=== PATIENT | female | born 2000 | race African-American/Black ===

== ENCOUNTER 2019-08-07 10:44 | Emergency (ER) | payer OTHER ==
[~2019-08-07] VITALS: Ht 167.6 cm; Wt 46.5 kg
[2019-08-07 10:48] VITALS: BP 117/84; TEMP 97.9
[2019-08-07] MEDS ORDERED: EXCEDRIN1 TAB PO (10:57)
[2019-08-07 12:01] LABS: COLLECTION METHOD CLEAN CATCH
[2019-08-07 12:08] LABS: MUCOUS Present /lpf; PH 6 (5-8); SQUAMOUS EPITHELIAL 0-2 /hpf; URINE APPEARANCE Clear; URINE BACTERIA Rare /hpf; URINE BILIRUBIN Negative (NEGATIVE); URINE BLOOD Negative (NEGATIVE); URINE COLOR Straw; URINE GLUCOSE Negative (NEGATIVE); URINE KETONE Negative (NEGATIVE); URINE LEUKOCYTE ESTERASE Negative (NEGATIVE); URINE NITRATE Negative (NEGATIVE); URINE PROTEIN(semi-quant) Negative (NEGATIVE); URINE RBC 0-2 /hpf; URINE UROBILINOGEN Negative (NEGATIVE)
[2019-08-07 12:45] VITALS: PULSE 98
== END 2019-08-07 12:50 | disposition home or self-care (01) ==
LOC: COL.ER 10:44
PROVIDERS: Physician Assistant
DX: G43.909 Migraine, unspecified, not intractable, without status migrainosus (principal); R42 Dizziness and giddiness
CPT/HCPCS: J0780; J2405; J7030